=== PATIENT | male | born 1995 | race American Indian/Alaskan Native ===

== ENCOUNTER 2016-07-03 13:15 | Emergency (ER) | payer SELFPAY ==
[2016-07-03 13:34] VITALS: BP 115/74
[2016-07-03 14:16] LABS: Basophils % (Auto) 0.2 % (0.0-1.8); Eosinophils % (Auto) 0.2 % (0.0-4.3); Hematocrit 46.1 % (35.5-45.6); Hemoglobin 15.5 gm/dl (11.8-15.2); Mean Corpuscular HGB Conc 34 % (32-34); Mean Corpuscular Hemoglobin 29 pg (28-32); Mean Corpuscular Volume 86 fl (84-94); Platelet Count 218 K/mm3 (140-440); Red Blood Count 5.36 M/mm3 (3.65-5.03); Red Cell Distribution Width 13.5 % (13.2-15.2); White Blood Count 8.3 K/mm3 (4.5-11.0)
[2016-07-03 14:30] LABS: Creatine Kinase MB < 1.0 ng/mL (0.0-4.0)
[2016-07-03 14:33] LABS: Alanine Aminotransferase 10 units/L (7-56); Albumin 4.6 g/dL (3.9-5); Albumin/Globulin Ratio 1.6 %; Alkaline Phosphatase 67 units/L (35-129); Anion Gap 18 mmol/L; Bilirubin,Total 0.6 mg/dL (0.1-1.2); Blood Urea Nitrogen 11 mg/dL (9-20); Calcium 9.7 mg/dL (8.4-10.2); Carbon Dioxide 24 mmol/L (22-30); Chloride 101.6 mmol/L (98-107); Creatine Kinase 211 units/L (55-170); Glucose 117 mg/dL (75-100); Lipase 86 units/L (13-60); Potassium 3.9 mmol/L (3.6-5.0); Sodium 140 mmol/L (137-145); Total Protein 7.4 g/dL (6.3-8.2)
== END 2016-07-03 19:35 | disposition left against medical advice (07) ==
LOC: ED 13:15
DX: R07.81 Pleurodynia (principal); R11.10 Vomiting, unspecified; Z53.21 Procedure and treatment not carried out due to patient leaving prior to being seen by health care provider
CPT/HCPCS: 36415; 80053; 82550; 82553; 83690; 84484; 85025; 93005; 93010

== ENCOUNTER 2020-10-05 11:21 | Emergency (ER) | payer SELFPAY ==
[2020-10-05 12:23] VITALS: BP 100/79
[2020-10-05] MEDS ORDERED: ONDANSETRON 4 MG ODT TAB PO ONE (14:12)
--- NOTE | 2020-10-05 14:23 | Emergency Department Report ---
ED N/V/D HPI - General Chief complaint: Nausea/Vomiting/Diarrhea Stated complaint: NAUSEA/VOMITING Source: patient Mode of arrival: Ambulatory Limitations: No Limitations - History of Present Illness Initial comments: 25-year-old -[place] male presents to the emergency room stating he woke up with vomiting. Came by EMS states he has not vomited since he has been here. Patient does admit to smoking marijuana. Denies any cigarette or alcohol use. Denies any past medical history. 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 Denies any abdominal pain. No fever no chills no chest pain. MD complaint: nausea, vomiting -: This morning Description of Vomiting: bilious Associated Abdominal Pain: No Pain Scale: 1 Improves with: none Worsens with: none Associated Symptoms: nausea/vomiting. denies: cough, fever/chills, loss of appetite, rash - Related Data Previous Rx's Medication Instructions Recorded Last Taken Type Ondansetron [Zofran ODT TAB] 4 mg PO Q8HR PRN #12 tab.rapdis 10/05/20 Unknown Rx Allergies Allergy/AdvReac Type Severity Reaction Status Date / Time shrimp Allergy Anaphylaxis Verified 10/05/20 12:23 ED Review of Systems ROS: Stated complaint: NAUSEA/VOMITING Other details as noted in HPI Comment: All other systems reviewed and negative ED Past Medical Hx - Past Medical History Hx Asthma: Yes - Surgical History Past Surgical History?: No - Social History Smoking Status: Never Smoker Substance Use Type: None - Medications Home Medications: Home Medications Medication Instructions Recorded Confirmed Last Taken Type Ondansetron [Zofran ODT TAB] 4 mg PO Q8HR PRN #12 tab.rapdis 10/05/20 Unknown Rx ED Physical Exam - General Limitations: No Limitations General appearance: alert, in no apparent distress - Head Head exam: Present: atraumatic, normocephalic - Eye Eye exam: Present: normal appearance - ENT ENT exam: Present: mucous membranes moist - Neck Neck exam: Present: normal inspection - Respiratory Respiratory exam: Present: normal lung sounds bilaterally. Absent: respiratory distress - Cardiovascular Cardiovascular Exam: Present: regular rate, normal rhythm. Absent: systolic murmur, diastolic murmur, rubs, gallop - GI/Abdominal GI/Abdominal exam: Present: soft, normal bowel sounds. Absent: distended, tenderness, guarding - Rectal Rectal exam: Present: deferred - Extremities Exam Extremities exam: Present: normal inspection - Back Exam Back exam: Present: normal inspection - Neurological Exam Neurological exam: Present: alert, oriented X3 - Psychiatric Psychiatric exam: Present: normal affect, normal mood - Skin Skin exam: Present: warm, dry, intact, normal color. Absent: rash ED Course Vital Signs 10/05/20 12:21 Temperature 97.8 F Pulse Rate 56 L Respiratory 18 Rate Blood Pressure 100/79 [Left] O2 Sat by Pulse 100 Oximetry ED Medical Decision Making - Medical Decision Making 25-year-old -[place] male presents to the emergency room stating he woke up with vomiting. Came by EMS states he has not vomited since he has been here. Patient does admit to smoking marijuana. Denies any cigarette or alcohol use. Denies any past medical history. 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 Denies any abdominal pain. No fever no chills no chest pain. Patient is given Zofran ODT and started on a p.o. challenge. Critical care attestation.: If time is entered above; I have spent that time in minutes in the direct care of this critically ill patient, excluding procedure time. ED Disposition Clinical Impression: Nausea & vomiting Disposition: DC-01 TO HOME OR SELFCARE Is pt being admited?: No Does the pt Need Aspirin: No Condition: Stable Instructions: Nausea and Vomiting, Adult, [id number] Additional Instructions: Please take Zofran as needed for nausea and vomiting. Please avoid eating to carry out food. Increase your fluid intake advance your diet as tolerated. Prescriptions: Ondansetron [Zofran ODT TAB] 4 mg PO Q8HR PRN #12 tab.rapdis PRN Reason: Nausea And Vomiting Referrals: [facility] [Provider Group] - 3-5 Days Time of Disposition: 14:45
== END 2020-10-05 14:45 | disposition home or self-care (01) ==
LOC: ED 11:21
DX: R11.2 Nausea with vomiting, unspecified (principal); J45.909 Unspecified asthma, uncomplicated
CPT/HCPCS: 99281; Q0162

== ENCOUNTER 2020-10-08 07:44 | Emergency (ER) | payer SELFPAY ==
[2020-10-08 08:00] VITALS: BP 117/73
[2020-10-08 09:39] LABS: Basophils # (Auto) 0.1 K/mm3 (0.0-0.1); Basophils % (Auto) 0.4 % (0.0-1.8); Eosinophils # (Auto) 0.1 K/mm3 (0.0-0.4); Eosinophils % (Auto) 0.4 % (0.0-4.3); Hematocrit 43.7 % (35.5-45.6); Hemoglobin 15.2 gm/dl (11.8-15.2); Lymphocytes # (Auto) 1.9 K/mm3 (1.2-5.4); Lymphocytes % (Auto) 13.4 % (13.4-35.0); Mean Corpuscular HGB Conc 35 % (32-34); Mean Corpuscular Volume 87 fl (84-94); Monocytes % (Auto) 7.2 % (0.0-7.3); Platelet Count 251 K/mm3 (140-440); Red Cell Distribution Width 13.6 % (13.2-15.2)
[2020-10-08 09:56] LABS: Alanine Aminotransferase 21 units/L (7-56); Albumin 4.4 g/dL (3.9-5); BUN/Creatinine Ratio 10; Blood Urea Nitrogen 11 mg/dL (9-20); Calcium 9.6 mg/dL (8.4-10.2); Hemolysis Index 3
[2020-10-08] MEDS ORDERED: SODIUM CHLORIDE 0.9% 1000 ML 1,000 ML IV ONE (10:52)
[2020-10-08 11:24] LABS: Bilirubin,Urine NEG (Negative); Blood,Urine NEG (Negative); Color,Urine Yellow (Yellow); Mucus,Urine FEW /HPF; Protein,Urine <15 mg/dL mg/dL (Negative)
[2020-10-08 12:19] LABS: Amphetamine Screen,Urine Negative; Benzodiazepines Screen,Urine Negative; Cocaine Screen,Urine Negative; Methadone Screen,Urine Negative; Opiate Screen,Urine Negative
--- NOTE | 2020-10-08 12:35 | Cat Scan Report ---
CT abdomen pelvis w con INDICATION / CLINICAL INFORMATION: Epigastric pain n/v 100 OMNI 300 . TECHNIQUE: Axial CT images were obtained through the abdomen and pelvis after IV contrast. All CT sc ans at this location are performed using CT dose reduction for ALARA by means of automated exposure c ontrol. COMPARISON: None available. FINDINGS: LOWER CHEST: No significant abnormality LIVER: No significant abnormality GALLBLADDER/BILIARY TREE: No significant abnormality PANCREAS: No significant abnormality SPLEEN: No significant abnormality ADRENALS: No significant abnormality KIDNEYS / URETER: No significant abnormality URINARY BLADDER: No significant abnormality REPRODUCTIVE ORGANS: No significant abnormality STOMACH / BOWEL: No significant abnormality. The appendix is normal in caliber. LYMPH NODES: No significant adenopathy. VASCULATURE: No significant abnormality. OTHER: No free air, free fluid, or focal fluid collection is identified. SKELETAL SYSTEM: No acute osseous findings. IMPRESSION: No significant abnormality of the abdomen or pelvis. Signer Name: Ge Mtz MD Signed: 10/08/2020 12:31 PM Workstation Name: [id number]
[2020-10-08 12:46] LABS: Cannabinoid Screen,Urine PRESUMPTIVE POSITIVE
--- NOTE | 2020-10-08 12:56 | Emergency Department Report ---
ED N/V/D HPI - General Chief complaint: Nausea/Vomiting/Diarrhea Stated complaint: CANNOT STOP VOMITING FOR 2 WEEKS Time Seen by Provider: 10/08/20 09:00 Source: patient Mode of arrival: Ambulatory Limitations: No Limitations - History of Present Illness Initial comments: 25-year-old -[place] male who has had the pleasure of meeting on 10/05/2020 presents to the emergency room for continuing nausea and vomiting. Patient was discharged on Zofran on 10/05/2020. Patient has not followed up with any provider. Patient denies any diarrhea and just mild abdominal discomfort. Patient has a past medical history of asthma. Patient denies any fever chills no chest pain no shortness of breath. Patient does report that he does drink alcohol but does not drink it every day approximately 3 times a day. MD complaint: nausea, vomiting Onset/Timin -: week(s) Description of Vomiting: food contents, bilious Associated Abdominal Pain: Yes (Mild epigastric) Location: epigastric Radiation: none Severity: mild Pain Scale: 2 Quality: aching Consistency: intermittent Improves with: none Worsens with: eating Associated Symptoms: nausea/vomiting. denies: chest pain, cough, diaphoresis, fever/chills, headaches, loss of appetite, dysuria, shortness of breath, weakness - Related Data Previous Rx's Medication Instructions Recorded Last Taken Type Ondansetron [Zofran ODT TAB] 4 mg PO Q8HR PRN #12 tab.rapdis 10/05/20 Unknown Rx Allergies Allergy/AdvReac Type Severity Reaction Status Date / Time shrimp Allergy Anaphylaxis Verified 10/05/20 12:23 ED Review of Systems ROS: Stated complaint: CANNOT STOP VOMITING FOR 2 WEEKS Other details as noted in HPI Comment: All other systems reviewed and negative ED Past Medical Hx - Past Medical History Previous Medical History?: Yes Hx Asthma: Yes - Surgical History Past Surgical History?: No - Social History Smoking Status: Never Smoker Substance Use Type: None - Medications Home Medications: Home Medications Medication Instructions Recorded Confirmed Last Taken Type Ondansetron [Zofran ODT TAB] 4 mg PO Q8HR PRN #12 tab.rapdis 10/05/20 Unknown Rx ED Physical Exam - General Limitations: No Limitations General appearance: alert, in no apparent distress - Head Head exam: Present: atraumatic, normocephalic - Eye Eye exam: Present: normal appearance - ENT ENT exam: Present: mucous membranes moist - Neck Neck exam: Present: normal inspection - Respiratory Respiratory exam: Present: normal lung sounds bilaterally. Absent: accessory muscle use - Cardiovascular Cardiovascular Exam: Present: regular rate - GI/Abdominal GI/Abdominal exam: Present: soft, tenderness, guarding. Absent: distended - Extremities Exam Extremities exam: Present: normal inspection, full ROM - Back Exam Back exam: Present: normal inspection - Neurological Exam Neurological exam: Present: alert, oriented X3, normal gait - Psychiatric Psychiatric exam: Present: normal affect, normal mood - Skin Skin exam: Present: warm, dry, intact, normal color. Absent: rash ED Course Vital Signs 10/08/20 10/08/20 07:59 13:14 Temperature 97.6 F Pulse Rate 58 L 74 Respiratory 20 16 Rate Blood Pressure 117/73 O2 Sat by Pulse 99 99 Oximetry ED Medical Decision Making - Lab Data Result diagrams: 10/08/20 09:06 10/08/20 09:06 Laboratory Tests 10/08/20 10/08/20 10/08/20 09:06 09:06 11:18 WBC 13.9 H RBC 5.00 Hgb 15.2 Hct 43.7 MCV 87 MCH 30 MCHC 35 H RDW 13.6 Plt Count 251 Lymph % (Auto) 13.4 [place] % (Auto) 7.2 Eos % (Auto) 0.4 Baso % (Auto) 0.4 Lymph # (Auto) 1.9 [place] # (Auto) 1.0 H Eos # (Auto) 0.1 Baso # (Auto) 0.1 Seg Neutrophils % 78.6 H Seg Neutrophils # 10.9 H Sodium 139 Potassium 3.8 Chloride 104.3 Carbon Dioxide 27 Anion Gap 12 BUN 11 Creatinine 1.1 Estimated GFR > 60 BUN/Creatinine Ratio 10 Glucose 102 H Calcium 9.6 Total Bilirubin 0.70 AST 19 ALT 21 Alkaline Phosphatase 51 Total Protein 6.5 Albumin 4.4 Albumin/Globulin Ratio 2.1 Lipase 137 H Urine Color Yellow Urine Turbidity Clear Urine pH 7.0 Ur Specific Radiant 1.017 Urine Protein <15 mg/dl Urine Glucose (UA) Neg Urine Ketones 20 Urine Blood Neg Urine Nitrite Neg Urine Bilirubin Neg Urine Urobilinogen 2.0 Ur Leukocyte Esterase Neg Urine WBC (Auto) 1.0 Urine RBC (Auto) 1.0 U Epithel Cells (Auto) < 1.0 Urine Mucus Few Urine Opiates Screen Urine Methadone Screen Ur Barbiturates Screen Ur Phencyclidine Scrn Ur Amphetamines Screen U Benzodiazepines Scrn Urine Cocaine Screen U Marijuana (THC) Screen Drugs of Abuse Note 10/08/20 11:18 WBC RBC Hgb Hct MCV MCH MCHC RDW Plt Count Lymph % (Auto) [place] % (Auto) Eos % (Auto) Baso % (Auto) Lymph # (Auto) [place] # (Auto) Eos # (Auto) Baso # (Auto) Seg Neutrophils % Seg Neutrophils # Sodium Potassium Chloride Carbon Dioxide Anion Gap BUN Creatinine Estimated GFR BUN/Creatinine Ratio Glucose Calcium Total Bilirubin AST ALT Alkaline Phosphatase Total Protein Albumin Albumin/Globulin Ratio Lipase Urine Color Urine Turbidity Urine pH Ur Specific Radiant Urine Protein Urine Glucose (UA) Urine Ketones Urine Blood Urine Nitrite Urine Bilirubin Urine Urobilinogen Ur Leukocyte Esterase Urine WBC (Auto) Urine RBC (Auto) U Epithel Cells (Auto) Urine Mucus Urine Opiates Screen Negative Urine Methadone Screen Negative Ur Barbiturates Screen Negative Ur Phencyclidine Scrn Negative Ur Amphetamines Screen Negative U Benzodiazepines Scrn Negative Urine Cocaine Screen Negative U Marijuana (THC) Screen Presumptive positive Drugs of Abuse Note Disclamer - Radiology Data Radiology results: report reviewed [facility] [address] [place] [address] Cat Scan Report Signed Patient: LINCOLN BALLARD MR#: [id number] : 1995 Acct:[id number] Age/Sex: 25 / M ADM Date: 10/08/20 Loc: ED Attending Dr: Ordering Physician: PABLITO LOZANO Date of Service: 10/08/20 Procedure(s): CT abdomen pelvis w con Accession Number(s): [id number] cc: PABLITO LOZANO CT abdomen pelvis w con INDICATION / CLINICAL INFORMATION: Epigastric pain n/v 100 OMNI 300 . TECHNIQUE: Axial CT images were obtained through the abdomen and pelvis after IV contrast. All CT scans at this location are performed using CT dose reduction for ALARA by means of automated exposure control. COMPARISON: None available. FINDINGS: LOWER CHEST: No significant abnormality LIVER: No significant abnormality GALLBLADDER/BILIARY TREE: No significant abnormality PANCREAS: No significant abnormality SPLEEN: No significant abnormality ADRENALS: No significant abnormality KIDNEYS / URETER: No significant abnormality URINARY BLADDER: No significant abnormality REPRODUCTIVE ORGANS: No significant abnormality STOMACH / BOWEL: No significant abnormality. The appendix is normal in caliber. LYMPH NODES: No significant adenopathy. VASCULATURE: No significant abnormality. OTHER: No free air, free fluid, or focal fluid collection is identified. SKELETAL SYSTEM: No acute osseous findings. IMPRESSION: No significant abnormality of the abdomen or pelvis. Signer Name: Rebecca Cormier MD Signed: 10/08/2020 12:31 PM Workstation Name: [id number] Transcribed By: ISABELL Dictated By: REBECCA CORMIER MD Electronically Authenticated By: REBECCA CORMIER MD Signed Date/Time: 10/08/20 1231 DD/ 1228 TD/TT: Print Cancel - Medical Decision Making 25-year-old -[place] male who has had the pleasure of meeting on 10/05/2020 presents to the emergency room for continuing nausea and vomiting. Patient was discharged on Zofran on 10/05/2020. Patient has not followed up with any provider. Patient denies any diarrhea and just mild abdominal discomfort. Patient has a past medical history of asthma. Patient denies any fever chills no chest pain no shortness of breath. Patient does report that he does drink alcohol but does not drink it every day approximately 3 times a day. Critical care attestation.: If time is entered above; I have spent that time in minutes in the direct care of this critically ill patient, excluding procedure time. ED Disposition Clinical Impression: Nausea & vomiting, Serum lipase elevation, Marijuana user Disposition: TO HOME OR SELFCARE Is pt being admited?: No Does the pt Need Aspirin: No Condition: Stable Instructions: Cannabis Use Disorder, Nausea and Vomiting, Adult, [id number] Additional Instructions: Labs show that you have an elevated lipase which is common in people who drink alcohol. Urine is positive for marijuana. CAT scan of your stomach shows no acute abnormalities. Most likely your nausea vomiting is coming from the alcohol and marijuana use. You need to follow-up with a emergency spill response technician. You need to discontinue smoking marijuana and drinking alcohol are you going to continue having this discomfort. I recommend to increase your fluid intake continue with your Zofran. Referrals: [facility] [Primary Care Provider] - 3-5 Days [facility] [Provider Group] - 3-5 Days [facility] [Outside] - 3-5 Days
== END 2020-10-08 13:14 | disposition home or self-care (01) ==
LOC: ED 07:44
DX: R11.2 Nausea with vomiting, unspecified (principal); R74.8 Abnormal levels of other serum enzymes; F12.90 Cannabis use, unspecified, uncomplicated; J45.909 Unspecified asthma, uncomplicated; Z79.899 Other long term (current) drug therapy; Z91.013 Allergy to seafood
CPT/HCPCS: 36415; 74177; 80053; 80307; 81001; 83690; 85025; 96360; 99284; J7030; Q9967